=== PATIENT | female | born 1995 | race Caucasian/White ===

== ENCOUNTER 2018-12-11 21:44 | Emergency (ER) | payer MEDICAID, SELFPAY ==
[2018-12-11 21:44] VITALS: BP 92/76; PULSE 126; RESP 16; TEMP 36.8; O2SAT 99; BMI 22.1
--- NOTE | 2018-12-11 22:20 | US_ITS ---
HISTORY: Moderate pelvic pain and back pain. An IUD is in place. 63 images. No comparison imaging. Findings: Endovaginal imaging only. The uterus measures 7.5 x 3.3 x 5.6 cm. The cervix is closed. Myometrium is homogeneous. An IUD is present within the endometrial canal. The endometrial stripe away from the IUD is 3 mm thick. The left ovary measures 4 x 1.8 x 1.9 cm. Color and pulse-wave Doppler imaging demonstrate normal flow the left ovarian parenchyma. Follicles are present within the left ovary. The right ovary measures 3.9 x 1.2 x 2.5 cm. Color Doppler imaging is nondiagnostic for flow within the right ovarian parenchyma. Pulse-wave Doppler imaging suggests flow to the right ovarian parenchyma. Right ovarian follicles are present. No free fluid is perceived. US/Transvaginal Non- IMPRESSION: Normal. at 2338 Reported and signed by: El Estrada MD Electronically Signed: El Estrada MD at 23:37 EDT Tel , Service support ,
[2018-12-11 22:45] LABS: Mucous, Urine 0 SEEN /hpf (<or=2+); Red Blood Cells-Urine 0 SEEN /hpf (0-5)
[2018-12-11 22:48] LABS: Absolute Lymphocyte Count 0.96 X10^3/ul (0.83-4.51); Absolute Neutrophil Count 14.5 X10^3/uL (2.0-7.7); Basophil# 0.02 X10^3/uL; Basophil% 0.1 % (0-1); Eosinophil# 0.05 X10^3/uL; Eosinophils% 0.3 % (0-5); Hematocrit 40.8 % (37-47); Hemoglobin 13.2 g/dl (12.0-15.0); Lymphocyte # 0.96 X10^3/ul (4.0); Lymphocyte % 5.9 % (19-41); Mean Corp Hgb Conc 32.4 g/gl (32-36); Mean Corpuscular Hgb 27.8 pg (27.0-32.0); Mean Corpuscular Volume 85.9 fL (81-99); Mean Platelet Vol. 9.9 fl (6.2-12.0); Monocyte# 0.84 X10^3/uL; Monocyte% 5.1 % (0-10); Neutrophil # 14.45 X10^3/uL (2.7-7.7); Neutrophil % 88.4 % (47-70); POSITIVE COUNT NO; POSITIVE DIFFERENTIAL NO; POSITIVE MORPHOLOGY NO; Platelet Count 334 K/mm3 (150-450); RBC Distribution Width CV 13.7 % (11.6-14.6); RBC Distribution Width SD 43.3 fl (35.1-43.9); Red Blood Count 4.75 M/mm3 (4.2-5.4); White Blood Count 16.4 K/mm3 (4.4-11.0)
[2018-12-11 22:53] LABS: Color, Urine Yellow (Yellow); Glucose, Dipstick Normal (Normal); Ketone-Dipstick 5 mg/dl (Negative); Leukocyte Esterase-Dipstick 25 /ul (Negative); Nitrite-Dipstick Positive (Negative); Occult Blood-Urine 10 /ul (Negative); Protein-Dipstick 30 mg/dl (Negative); Urine Bilirubin Dipstick Negative (Negative); Urine Clarity Sl. Cloudy (Clear); Urine Urobilinogen Normal (Normal)
[2018-12-11 22:56] LABS: Bacteria 4+ /hpf (None Seen); Squamous Epithelial Cells - UA 0-5 SEEN /hpf (5-10); White Blood Cells 10-25 SEEN /hpf (0-5)
[2018-12-11 23:07] LABS: Internal QC Validated? YES +Cl - CLEAR BKGD; Pregnancy, Serum, hCG Quali. NEGATIVE Negative
[2018-12-11 23:10] LABS: Anion Gap 5 (5-15); BUN 13 mg/dL (7-18); BUN/Creat Ratio 17.2 RATIO (10-20); Calcium,Total 8.8 mg/dL (8.5-10.1); Chloride 104 mmol/L (98-107); Creatinine, Serum 0.76 mg/dL (0.55-1.02); EST Glomerular Filtration Rate 100 mL/min (>60); Est Glom Filt Rate - Afr Amer 121 mL/min (>60); Estimated Creatinine Clearance 107.77 ml/min; Glucose 109 mg/dL (74-106); Potassium 3.4 mmol/L (3.5-5.1); Sodium Level 136 mmol/L (136-145)
[2018-12-11] MEDS: Ketorolac 30 MG/ML Syringe IV (23:12)
[2018-12-11] MEDS: 0.9% Normal Saline 1,000 ML 150 ML IV (23:12)
--- NOTE | 2018-12-11 23:50 | ED.VISSUMM ---
- ER Visit Summary Date of Service: 12/11/18 Chief Complaint: Back and pelvic pain History of Present Illness: The patient is a 23 F with left lower quadrant and low back pain that started tonight. She denies urinary symptoms or vaginal discharge. She has no known history of ovarian cyst. She has an IUD in place. States her last spotting was last week. She denies fever chills. There has been no back injury. Physical Examination: Vital signs in triage include a blood pressure 92/76 with a heart rate of 126. She is afebrile. The time of my examination blood pressure is 115/78 with a heart rate of 115. Patient lying in bed no acute distress. She is nontoxic-appearing. Heart is slightly tachycardic. Lung sounds are clear. Abdomen is soft with mild tenderness in the left lower quadrant. No guarding or rebound. No masses are palpable. Back examination was no CVA tenderness. She has mild left low lumbar paraspinal tenderness. Test Results: CBC was a white count of 16.4 with 88% neutrophils. Chemistry studies reveal potassium 3.4. Urinalysis is positive for nitrites with 10-25 white cells and 4+ bacteria. Urgency test negative. Pelvic ultrasound is normal. Emergency Department Course and Treatment: Patient was given Toradol and IV fluids. She will be treated with a course of Bactrim, first dose given here. Urine culture is sent. Treatment Plan: [] Disposition: Discharge Impression: Cystitis This note was generated with [employer] dictation software. It may contain incorrect words, spelling, and punctuation that were not noted in review of the chart prior to signing ED Disposition - Plan for ED Patient: Disposition: Home or Assisted Living Instructions: ED UTI Cystitis Female Prescriptions: Smz/Tmp Ds [Bactrim Ds] 1 tablet PO BID #6 tablet Referrals: Kendrick Robert PA [Primary Care Provider] - 1-2 Weeks
[2018-12-11 23:52] VITALS: BP 112/81; PULSE 86; RESP 18
[2018-12-12] MEDS: Smz/Tmp Ds Tablet 1 TABLET PO (00:04)
== END 2018-12-12 00:07 | disposition home or self-care (01) ==
PROVIDERS: Emergency Provider Emergency Medicine; Family Provider Physician Assistant; PCP Physician Assistant
DX: N30.90 Cystitis, unspecified without hematuria (principal); Z97.5 Presence of (intrauterine) contraceptive device
CPT/HCPCS: 76830; 80048; 81001; 84703; 85025; 87086; 87088; 87186; 93976; 99284; J7030; A4216